=== PATIENT | male | born 1945 | race Two or more races ===

== ENCOUNTER → 2025-04-29 | Outpatient (CLI) | payer MEDICARE, SELFPAY ==
--- NOTE | 2025-04-29 | XR_ITS ---
Examination: CT maxillofacial, without intravenous contrast. 2-D sagittal reconstructions. 3-D reconstructions. Date and time of exam: April 29, 2025, 1500 hours INDICATIONS: Diagnosis nasal polyps CTDI: vol (mGy): 7.54 DLP: (mGycm): 101 Technique: Multiple axial images of maxillofacial region, 3.0 mm slice thickness. 2-D sagittal and coronal reconstructions. 3-D reconstructions. Low dose protocols were performed. One or more of the following dose reduction techniques were used; automated exposure control, adjustment of the mA and/or KV according to patient size, use of iterative reconstruction technique. Findings: Trace mucosal thickening in the frontal air cells Mild mucosal thickening in the ethmoid air cells Significant mucosal disease in the left nasal airways with prominent hypertrophy left inferior nasal turbinate 20 mm retention cyst left maxillary antrum, chronic mucosal thickening up to 18 mm in the left maxillary antrum Deviation lower nasal septum to the left 4 mm IMPRESSION: Significant chronic pansinusitis Significant mucosal disease in the left nasal airway with prominent hypertrophy left inferior nasal turbinate.
== END | disposition home or self-care (01) ==
LOC: CCTX 14:25
PROVIDERS: PCP Nurse Practitioner; Referring Provider Otolaryngology; Visit Provider Otolaryngology
DX: J32.4 Chronic pansinusitis (principal); J34.89 Other specified disorders of nose and nasal sinuses; J34.3 Hypertrophy of nasal turbinates
CPT/HCPCS: 70486